=== PATIENT | female | born 1970 | race Caucasian/White ===

== ENCOUNTER 2024-11-23 09:40 | Outpatient (CLI) | payer BC, SELFPAY ==
[2024-11-26 13:23] LABS: HPV Source Cervix; HPV, High Risk by TMA Not Detected
== END 2024-11-23 09:41 | disposition home or self-care (01) ==
PROVIDERS: Visit Provider Obstetrics & Gynecology
DX: Z12.4 Encounter for screening for malignant neoplasm of cervix (principal)
CPT/HCPCS: 87624; 87625; 88141; 88142

== ENCOUNTER 2025-02-14 08:07 | Outpatient (CLI) | payer BC, SELFPAY ==
--- NOTE | 2025-02-14 08:15 | CRLHL7_ITS ---
For Patients: As a result of the Century Cures Act, medical imaging exams and procedure reports are released immediately into your electronic medical record. You may view this report before your referring provider. If you have questions, please contact your health care provider. INDICATION: BILATERAL SCREENING MAMMOGRAM, ASYMPTOMATIC 54 Y/O FEMALE COMPARISON: 12/16/2021, 03/21/2019, 12/19/2014 TECHNIQUE: Digital mammogram in CC and MLO projections including computer-aided detection (CAD) and tomosynthesis. BREAST COMPOSITION: The breasts are heterogeneously dense, which may obscure small masses. FINDINGS: No suspicious findings. ASSESSMENT: BI-RADS 1 Negative RECOMMENDATION: Annual screening mammogram. A lay language report of this examination will be provided to the patient. Dictated by: Rob Mccallum MD @ 02/14/2025 09:37:09 (Electronically Signed)
== END 2025-02-14 08:08 | disposition home or self-care (01) ==
LOC: MAMMO 08:08
PROVIDERS: Visit Provider Obstetrics & Gynecology
DX: Z12.31 Encounter for screening mammogram for malignant neoplasm of breast (principal); R92.333 Mammographic heterogeneous density, bilateral breasts; Z13.6 Encounter for screening for cardiovascular disorders; Z13.1 Encounter for screening for diabetes mellitus; Z13.29 Encounter for screening for other suspected endocrine disorder; Z13.21 Encounter for screening for nutritional disorder
CPT/HCPCS: 77063; 77067; 80061; 82306; 82607; 82947; 83021; 84443

== ENCOUNTER 2025-08-16 09:17 | Outpatient (CLI) | payer BC, SELFPAY ==
[2025-08-16 10:52] LABS: Hematocrit* 40.4 % (33.0-51.0); Hemoglobin* 13.4 gm/dL (12.0-16.0); Mean Corpuscular HGB Conc 33 gm/dL (32-36); Mean Corpuscular Hemoglobin 32 pg (26-34); Mean Corpuscular Volume 96 fL (80-100); Red Blood Count* 4.23 m/uL (4.00-5.20); White Blood Count* 4.55 K/uL (4.50-11.00)
[2025-08-16 10:58] LABS: Slide Review Reflex No
[2025-08-16 11:22] LABS: Chloride* 98 mmol/L (96-114)
[2025-08-16 11:23] LABS: Albumin* 4.7 g/dL (3.3-5.0); Potassium* 4.5 mmol/L (3.6-5.1); Sodium* 137 mmol/L (135-149)
[2025-08-16 11:25] LABS: Blood Urea Nitrogen* 17 mg/dL (7-30); Creatinine* 0.8 mg/dL (0.5-1.5); Estimated Glomerular Filt Rate 89 ml/min
[2025-08-16 11:26] LABS: Alanine Aminotransferase* 36 U/L (4-35); Alkaline Phosphatase* 115 U/L (40-150); Anion Gap 10 mEq/L (7-15); Aspartate Amino Transferase* 39 U/L (12-35); Bilirubin Total* 0.5 mg/dL (0.1-1.5); Calcium* 9.6 mg/dL (8.4-10.6); Carbon Dioxide* 29 mmol/L (20-32); Glucose* 100 mg/dL (60-115); Total Protein* 8.0 g/dL (6.0-8.3)
[2025-08-16 11:43] LABS: Free T4 Free Thyroxine* 1.07 ng/dL (0.70-1.85)
[2025-08-16 11:46] LABS: Vitamin D 25 Hydroxy* 46 ng/mL (30-80)
[2025-08-16 12:16] LABS: Vitamin B12* 732 pg/mL (243-894)
[2025-08-17 22:46] LABS: Follicle Stimulating Hormone 74.1 IU/L
[2025-08-17 23:10] LABS: Free T3 3.1 pg/mL (2.5-4.3)
[2025-08-22 13:42] LABS: Testosterone, Free LC-MS/MS 1.4 pg/mL (0.6-3.8); Testosterone, LC-MS/MS 11 ng/dL (9-55)
== END 2025-08-16 09:18 | disposition home or self-care (01) ==
LOC: NPINS 09:20
PROVIDERS: Visit Provider Emergency Medicine
DX: M79.671 Pain in right foot (principal); M79.672 Pain in left foot; Z78.0 Asymptomatic menopausal state; R68.82 Decreased libido; N89.8 Other specified noninflammatory disorders of vagina; M79.10 Myalgia, unspecified site; E55.9 Vitamin D deficiency, unspecified
CPT/HCPCS: 80053; 82306; 82607; 82670; 83001; 84270; 84402; 84403; 84439; 84443; 84481; 85027